=== PATIENT | male | born 1985 | race Caucasian/White ===

== ENCOUNTER 2018-04-05 16:10 | Inpatient (IN) | payer OTHER ==
[~2018-04-05] VITALS: Ht 170.2 cm; Wt 88.0 kg
[2018-04-05 16:28] VITALS: BP 143/88
[2018-04-05] MEDS ORDERED: NOHOMEMEDICATIONS (16:31)
[2018-04-05 16:39] LABS: ABSOLUTE LYMPHOCYTES 1.7 thou/uL (0.8-5.3); ABSOLUTE MONOCYTES 1.2 thou/uL (0.0-1.2); ABSOLUTE NEUTROPHILS 11.5 thou/uL (1.6-8.1); BASOPHILS 0.3 %; HEMATOCRIT 47.5 % (42.0-52.0); HEMOGLOBIN 16.5 gm/dL (14.0-18.0); LYMPHOCYTES 11.7 %; MCH 31.4 pg (26.0-34.0); MCHC 34.7 g/dL (28.0-37.0); MCV 90.6 fL (80.0-100.0); MONOCYTES 8.2 %; MPV 8.6 fl. (7.2-11.1); NUCLEATED RBCS 0 /100WBC; PLATELET COUNT* 261 thou/uL (150-400); POLYS 79.8 %; RBC 5.25 mil/uL (4.50-6.00); RDW-CV 12.8 % (10.5-14.5); WBC 14.4 thou/uL (4.0-11.0)
[2018-04-05 16:47] LABS: CALCIUM 9.2 mg/dL (8.5-10.1); POTASSIUM 3.6 mmol/L (3.5-5.1)
[2018-04-05 16:52] LABS: ALBUMIN 4.3 g/dL (3.4-5.0); TOTAL BILIRUBIN 1.1 mg/dL (<0.1-1.0); TOTAL PROTEIN 7.9 g/dL (6.4-8.2)
[2018-04-05] MEDS ORDERED: ONDANSETRON HCL4 M2 PO (17:55)
[2018-04-05] MEDS ORDERED: FLOMAX0.4 MG PO (17:55)
[2018-04-05] MEDS ORDERED: NAPROSYN500 MG PO (17:55)
[2018-04-05] MEDS ORDERED: NORCO 5-325 TA1 EACH PO (17:55)
[2018-04-05 20:45] LABS: URINE BILIRUBIN NEGATIVE (Negative); URINE BLOOD NEGATIVE (Negative); URINE CLARITY CLEAR; URINE COLOR YELLOW; URINE GLUCOSE-RANDOM NEGATIVE (Negative); URINE KETONES 2+ (Negative); URINE LEUKOCYTES NEGATIVE (Negative); URINE NITRITE NEGATIVE (Negative); URINE PROTEIN TRACE (Negative); URINE SPECIFIC GRAVITY >= 1.030 (1.005-1.030); URINE UROBILINOGEN 0.2 E.U./dl (0.2-1.0)
[2018-04-05 20:51] LABS: AMP/METHAMP Negative (Negative); BARBITURATES Negative (Negative); BENZODIAZEPINES Negative (Negative); COCAINE Negative (Negative); METHADONE Negative (Negative); OPIATES POSITIVE (Negative); PCP Negative (Negative); THC Negative (Negative)
[2018-04-05 21:10] VITALS: BP 111/71
[2018-04-06 00:07] VITALS: BP 110/71
[2018-04-06 04:41] LABS: HEMATOCRIT 42.2 % (42.0-52.0); MCH 31.4 pg (26.0-34.0); MCHC 34.1 g/dL (28.0-37.0); MCV 92.3 fL (80.0-100.0); MPV 8.8 fl. (7.2-11.1); RBC 4.58 mil/uL (4.50-6.00); WBC 9.8 thou/uL (4.0-11.0)
[2018-04-06 05:04] LABS: HEMOGLOBIN 14.4 gm/dL (14.0-18.0)
[2018-04-06 05:07] LABS: ALBUMIN 3.2 g/dL (3.4-5.0); POTASSIUM 4.3 mmol/L (3.5-5.1); TOTAL BILIRUBIN 0.9 mg/dL (<0.1-1.0); TOTAL PROTEIN 5.9 g/dL (6.4-8.2)
[2018-04-06 07:55] VITALS: BP 114/72
[2018-04-06 16:00] VITALS: BP 138/85
[2018-04-06 19:18] VITALS: BP 120/69
[2018-04-07 08:10] VITALS: BP 116/65
[2018-04-07 09:08] VITALS: BP 116/65
[2018-04-07 12:28] LABS: CALCIUM 8.4 mg/dL (8.5-10.1); CREATININE 1.7 mg/dL (0.6-1.3)
[2018-04-07 12:42] LABS: HEMATOCRIT 43.5 % (42.0-52.0); MCH 31.4 pg (26.0-34.0); MCHC 34.5 g/dL (28.0-37.0); MPV 8.2 fl. (7.2-11.1); RBC 4.79 mil/uL (4.50-6.00); RDW-CV 12.6 % (10.5-14.5); WBC 8.3 thou/uL (4.0-11.0)
[2018-04-07 16:00] VITALS: BP 125/88
[2018-04-08 08:30] VITALS: BP 134/91
[2018-04-08 09:58] LABS: CALCIUM 8.7 mg/dL (8.5-10.1); CREATININE 1.5 mg/dL (0.6-1.3); POTASSIUM 3.5 mmol/L (3.5-5.1)
[2018-04-08 11:33] VITALS: BP 134/91
[2018-04-08] MEDS ORDERED: CIPRO500 MG PO (11:37)
[2018-04-08] MEDS ORDERED: LEVSIN0.125 MG PO (11:38)
[2018-04-08] MEDS ORDERED: NORCO 5-325 TA1 EACH PO (11:39)
[2018-04-08 13:32] VITALS: BP 134/91
[2018-04-16 12:05] LABS: STONE CA OXALATE MONOHYDRATE 97 % (()); STONE COLOR Brown (()); STONE WEIGHT 9.6 mg (())
--- NOTE | 2018-04-27 15:21 | OP ---
[address] [address] OPERATIVE REPORT Name: KIRK WHITMAN Room: [address] M.R.#: [id number] Admission: 04/05/18 Attend Phys: Niko Meyers Discharge: 04/08/18 Date of : 85 Report #: [id number] THIS REPORT FOR: //name// CC: [facility] physician/PCP Dominic Valentino DATE OF SERVICE: 04/07/2018 PREOPERATIVE DIAGNOSES: Left ureteral obstruction with urinary tract infection and azotemia. POSTOPERATIVE DIAGNOSES: Left ureteral obstruction with urinary tract infection and azotemia. PROCEDURE PERFORMED: Cystoscopy, left retrograde pyelogram, collection of the urine culture from left renal pelvis and JJ stent placement. SURGEON: Dylon Mancuso MD COMPLICATIONS: None. DRAINS: Include a 6 x 28 cm ureteral stent on the left. SPECIMEN: None. ANESTHESIA: General. BLOOD LOSS: None. STATEMENT OF MEDICAL INDICATION: This is a 32-year-old male who was admitted with a small distal ureteral stone. He had a creatinine of 2.0 on admission. He developed fever last night. He did pass a small stone fragment this morning; however, he continued to have some pain, was still febrile this morning and with his azotemia. The options were discussed of conservative measures versus stent placement and he and his family agreed to be most appropriate to proceed with stent placement. He understood in advance the procedure risks and potential complications, including but not limited to bleeding, infection, injury to the urinary tract, need for stent removal or additional procedures. DESCRIPTION OF PROCEDURE: Following informed consent, the patient was taken to the operating room and placed under general anesthesia. He was prepped and draped in sterile fashion in dorsal lithotomy position. Cystoscopy was carried out. The patient has normal anterior urethra, nonobstructive prostate. Within the bladder, there was significant debris, some of which may have been stones, some of which was appeared to be clot. The left ureteral [place]ifice [place] [address] OPERATIVE REPORT Name: KIRK WHITMAN Room: [address]#: [id number] Admission: 04/05/18 Attend Phys: Niko Meyers Discharge: 04/08/18 Date of : 85 Report #: [id number] and a retrograde pyelogram failed to reveal any stone in the distal ureter and therefore, the Pollack catheter was advanced up into the renal pelvis and a collection of urine was made and submitted for culture. Following this, contrast was injected to fill out the collecting system. A sensor wire was placed up in the renal collecting system and a 6 x 28 cm stent placed over this and into the renal pelvis. Hydronephrotic drip was obtained. The patient was given a Uro-Jet per urethra, B and O suppository and returned to recovery room in satisfactory condition. He will need IV antibiotics at least for the next 24 hours. Need to follow up in 7-10 days for cysto and stent removal. <ELECTRONICALLY SIGNED> By: Dylon Mancuso MD 04/27/18 1521 [id number] Addy Mancuso MD /nt
== END 2018-04-08 13:33 | disposition home or self-care (01) | DRG 661 ==
LOC: M.ERS 16:10 → M.TBA-ER 20:20 → M.3W 20:20
PROVIDERS: Internal Medicine; Nurse Practitioner Family; Urology; ADMIT Internal Medicine
PROC: 0T778DZ Dilation of Left Ureter with Intraluminal Device, Via Natural or Artificial Opening Endoscopic (ICD-10-PCS; principal; 2018-04-07)
PROC: BT1F1ZZ Fluoroscopy of Left Kidney, Ureter and Bladder using Low Osmolar Contrast (ICD-10-PCS; principal; 2018-04-07)
DX: N13.6 Pyonephrosis (principal); N17.9 Acute kidney failure, unspecified; Z79.899 Other long term (current) drug therapy; Z91.09 Other allergy status, other than to drugs and biological substances